=== PATIENT | male | born 1970 | race Caucasian/White ===

== ENCOUNTER 2025-11-19 10:53 | Outpatient (CLI) | payer MEDICARE, SELFPAY ==
--- OUTSIDE RECORDS SUMMARY | 2025-11-19 10:57 | XMS_ITS | Clinical Summary ---
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 Leukemoid reaction COPD 08213445 (SNOMED CT) Active Margaret Degroot Chronic obstructive pulmonary disease Nicotine dependence, cigarettes F17.210 (ICD-10-CM ) Active Margaret Degroot Nicotine dependence, cigarettes, uncomplicated DM Type II E11.9 (ICD-10-CM ) Active Margaret Degroot Type 2 diabetes mellitus without complications Benign Essential Hypertension 18295684 (SNOMED CT) Active Margaret Degroot Benign hypertension Medications Medication Instructions Start Date Stop Date Generic Name NDC Provider ALBUTEROL SULFATE HFA 108 (90 Base) MCG/ACT AERS albuterol sulfate [id number] Stephanie Calina ATORVASTATIN CALCIUM 10 MG TABS atorvastatin [id number] Stephanie Calina PULMICORT 0.5 MG/2ML SUSP budesonide [id number] Stephanie Calina PEPCID 20 MG TABS famotidine [id number] Stephanie Calina HYDROCODONE-ACET AMINOPHEN 7.5-325 MG TABS hydrocodone-acet aminophen [id number] Stephanie Calina Medications Administered No information available. Allergies, Adverse Reactions, Alerts Allergy Name Reaction Description Start Date Severity Statu s Provider DEXAMETHASONE hives Moderate Active Jasmi n Calina Results Date Name Value Unit Range Flag Description Clinical Lists Update: Prelo ad MEDS REVIEW Done Documenta tion of current medications (procedure) SMOK STATUS Current every da y smoker Tobacco smoking status Plan of Care No information available. Procedures No information available. Vital Signs No information available. Immunizations No information available. Advance Directives No information available.
--- OUTSIDE RECORDS SUMMARY | 2025-11-19 10:57 | XMS_ITS | Clinical Summary ---
Author Organization [employer] ([place], [place], [place], [place], [place]) Address [address] [place] [address] Care Team Providers Care Finisher Special Stocks Name Role Phone Destiny Rodriguez PA-C Primary Care Provider [phone] Allergies Active Allergy Reactions Criticality Noted Date Comments Dexamethasone Hives High 02/11/2023 Medications cyclobenzaprin e (FLEXERIL) 10 MG tablet Take 1 tablet (10 mg total) by mouth 3 (three) times daily as needed for Pain. Active insulin glargine (LANTUS, SEMGLEE) 100 unit/mL injection Inject 15 Units subcutaneously every morning With breakfast. Active atorvastatin (LIPITOR) 10 MG tablet Take 1 tablet (10 mg total) by mouth nightly. Active insulin degludec (Tresiba FlexTouch U-100) 100 unit/mL (3 mL) InPn Inject 20 Units subcutaneously nightly. Active ergocalciferol (Vitamin D2) 1,250 mcg (50,000 unit) capsule Take 1 capsule (50,000 Units total) by mouth once a week. Active loratadine (CLARITIN) 10 mg tablet Take 1 tablet (10 mg total) by mouth in the morning. Active hydrOXYzine (ATARAX) 25 MG tablet Take 2 tablets (50 mg total) by mouth every night as needed for Anxiety. Active DULoxetine (CYMBALTA) 20 MG capsule Take 1 capsule (20 mg total) by mouth in the morning. Active omeprazole (PriLOSEC) 40 MG capsule Take 1 capsule (40 mg total) by mouth in the morning. Active hydroCHLOROthi azide (HYDRODIURIL) 12.5 MG tablet Take 1 tablet (12.5 mg total) by mouth in the morning. Active montelukast (SINGULAIR) 10 mg tablet Take 1 tablet (10 mg total) by mouth nightly. Active tiotropium bromide (Spiriva Respimat) 2.5 mcg/actuation Mist inhalation Inhale 2 puffs by mouth via inhaler in the morning. Active albuterol HFA (VENTOLIN HFA) 90 mcg/actuation inhaler Inhale 2 puffs by mouth via inhaler every 6 (six) hours as needed for Wheezing or Shortness of Breath. Active Active Problems Problem Noted Date Diagnosed Date Sepsis 02/12/2023 Pneumonia with cavity of lung 02/12/2023 Social History Tobacco Use Types Packs/Day Years Used Date Smoking Tobacco: Every Day Cigarettes Smokeless Tobacco: Never Tobacco Cessation:Ready to Q uit: Not Asked; Counseling Given: Not Answered Alcohol Use Standard Drinks/Week Comments Never 0 (1 standard drink = 0.6 oz pur e alcohol) PRAPARE - Transportation Answer Date Re corded In the past 12 months, has l ack of transportation kept you from medical appointments or from getting medications? No 02/12/2023 Lack of Transportation (Non-Medical) Not on file 02/12/2023 Food Insecurity Answer Date Recorded Food run out past 12 months Not on file 11/28 Food did not last past 12 months Not on file 12/15/2023 Employment Answer Date Recorded Help finding and keeping a job Not on file 0 12/15/2023 Family and Community Support Answer Gianfranco e Recorded Help with Day to Day Activities Not on file 12/15/2023 Feeling Lonely or Isolated Not on file 12/15 Educational Attainment Answer Date Mick rded Speak language other than [place] at home Not on file 12/15/2023 Want help with school or training Not on file 12/15/2023 Substance Use Answer Date Recorded Used prescription meds for non-medical reasons N ot on file 12/15/2023 Used illegal drugs past 12 months Not on file 12/15/2023 Sex and Gender Information Value Date Recorded Sex Assigned at Not on file Legal Sex Male 5:13 PM CDT Gender Identity Not on file Sexual Orientation Not on file Last Filed Vital Signs Vital Sign Reading Time Taken Comments Blood Pressure 117/64 02/15/2023 5:45 PM EDT Pulse 81 02/15/2023 5:45 PM EDT Temperature 36.8 C (98.2 F) 02/15/2023 5:10 PM EDT Respiratory Rate 16 02/15/2023 5:45 PM EDT Oxygen Saturation 94% 02/15/2023 5:45 PM EDT Inhaled Oxygen Concentration 35% 02/15/2023 8:25 AM EDT Weight 93.4 kg (206 lb) 02/12/2023 3:54 PM EDT Height 170.2 cm (5' 7.01 ) 02/12/2023 3:54 PM ED T Body Mass Index 32.26 02/12/2023 3:54 PM EDT Plan of Treatment Upcoming Encounters Date Type Department Care Team (Late st Contact Info) Description 12/13/2025 1:30 PM EST Appointment [facility] [address] [place] [phone] Destiny Rodriguez PA-C [address] [place] [address] Health Maintenance Due Date Last Done Comments Medicare Initial AWV G0438 CT Colonography 1968 Colonoscopy 1968 Colorectal Cancer Screening 1968 FOBT/FIT 1968 Fit-DNA (Cologuard) 1968 Sigmoidoscopy 1968 Depression Screening (12+) 1980 Hepatitis C Screening 1986 DTAP/TDAP/TD VACCINES (1 - Tdap) 1987 Pneumococcal 50+ years (1 of 2 - PCV) 1987 Lipid Panel 2003 Shingles Vaccine (Zoster) (1 of 2) 2018 Tobacco Cessation Counseling and Screening (12+) 02/1502/15/2023 COVID-19 VACCINE (1 - season) 2025 Influenza Vaccine (#1) 2025 HIV Screening Completed 02/12/2023 Procedures Procedure Name Priority Date/Time Associated Diagnosis Comments HIV 1/2 AG/AB COMBO STAT 02/12/2023 4 :13 PM EDT from Last 3 Months or Most Recently Relevant to Health Maintenance Results * HIV 1/2 AG/AB Combo (02/12/2023 4:13 PM EDT) HIV-1 P24 Antigen Nonreactive Nonreactive 02/12/2023 6:37 PM EDT [facility] Comment: The Combo HIV procedure is a fourth generation HIV test which detects BOTH p24 antigen AND HIV antibodies to HIV virus types 0, 1, and 2. A reactive result does not distinguish between the antigen or the antibody and does not specify which antibody is present. Additional testing is required to differentiate the component causing the reactive result. Biotin supplements can cause clinically significant incorrect lab results. The FDA has seen an increase in the number of adverse events related to biotin interference with lab tests. Blood Venipuncture / Unknown 02/12/2023 4:13 PM EDT 02/12/2023 4:37 PM EDT us Colin [facility] Final Resul t Performing Organization Address City/State/[facility] Co de Phone Number [facility] [address] [phone] from Last 3 Months or Most Recently Relevant to Health Maintenance Insurance MEDICARE PPO Member Subscriber Plan / Payer (Ef fective 2023-Present) Name:Pradeep Stephens Relation to Subscriber:Self Name:Pradeep Stephens Payer ID:[id number] (NAIC) Type:Not on file Address: [place] [id number] [address] Advance Directives For more information, please contact: [phone] * Full Code (Latest Code Status on File) Date Activated Date Inactivated Comments 02/12/2023 3:41 AM 02/15/2023 7:46 PM -Attempt Res uscitation if person has no pulse and is not breathing. -If no pulse or not breathing attempt CPR/CODE. -Call Rapid Response if patient is in distress. Care Teams Finisher Special Stocks Relationship Specialty Start Date End Date Destiny Rodriguez PA-C [address] [place] [address] PCP - General Allied Health Professional 02/11/23
--- OUTSIDE RECORDS SUMMARY | 2025-11-19 10:58 | XMS_ITS | Referral Summary ---
Author Organization [employer] ([place], [place], [place], [place], [place]) Address [address] [place] [address] Care Team Providers Care Farm Equipment Assembler Name Role Phone Destiny Rodriguez PA-C Primary Care Provider [phone] Allergies Active Allergy Reactions Criticality Noted Date [...] Date Mick rded Speak language other than Armenian at home Not on file 12/15/2023 Want [...] PM EDT Inhaled Oxygen Concentration 35% 02/15/2023 8 :25 AM EDT Weight 93.4 kg (206 lb) 02/12/2023 3:54 PM EDT Height 170.2 cm (5' 7.01 ) 02/12/2023 3:54 PM ED T Body Mass Index 32.26 02/12/2023 3:54 PM EDT Plan of Treatment Upcoming Encounters Date Type Department Care Team (Late st Contact Info) Description 12/13/2025 1:30 PM EST Appointment [facility] [address] [place] [phone] Destiny Rodriguez PA-C [address] [place] [address] Procedures Procedure Name Priority Date/Time Associated Diagnosis Comments HIV 1/2 AG/AB COMBO STAT 02/12/2023 4 :13 PM EDT from Last 3 Months or Most Recently Relevant to Health Maintenance Results * HIV 1/2 AG/AB Combo (02/12/2023 4:13 PM EDT) HIV-1 P24 Antigen Nonreactive Nonreactive 02/12/2023 6:37 PM EDT [facility] Comment: The Combo HIV procedure is [...] [facility] Final Resul t [facility] [address] [place] [id number] [phone] from Last 3 Months or Most Recently Relevant to Health Maintenance Insurance [employer] MEDICARE PPO Advance Directives For more information, please contact: [phone] * Full Code (Latest Code Status on File) Date Activated Date Inactivated Comments 02/12/2023 3:41 AM 02/15/2023 7:46 PM -Attempt Res uscitation if person has no pulse and is not breathing. -If no pulse or not breathing attempt CPR/CODE. -Call Rapid Response if patient is in distress. Care Teams Farm Equipment Assembler Relationship Specialty Start Date End Date Destiny Rodriguez PA-C [address] [place] [address] PCP - General Allied Health Professional 02/11/23
[2025-11-19 11:23] LABS: Hematocrit 45.0 % (42.0-52.0); Hemoglobin 16.1 g/dL (14.1-18.0); Immature Granulocytes % 0.4 %; Mean Corpuscular HGB Conc 35.8 g/dL (31.8-35.4); Mean Corpuscular Hemoglobin 30.7 pg (27.0-31.2); Mean Corpuscular Volume 85.7 fl (80-94); Nucleated Red Blood Cells % 0 %; Platelet Count 313 K/mm3 (142-424); Red Blood Count 5.25 M/mm3 (4.60-6.20); Red Cell Distribution Width-SD 39.0 fL; White Blood Count 16.6 K/mm3 (4.8-10.8)
== END 2025-11-19 23:59 | disposition home or self-care (01) ==
LOC: LAB 10:54
PROVIDERS: PCP Physician Assistant; Visit Provider Internal Medicine Medical Oncology
DX: Z04.89 Encounter for examination and observation for other specified reasons (principal); Z86.2 Personal history of diseases of the blood and blood-forming organs and certain disorders involving the immune mechanism
CPT/HCPCS: 36415; 85025